=== PATIENT | female | born 1935 | race Two or more races ===

== ENCOUNTER 2025-03-12 09:46 | Emergency (ER) | payer OTHER ==
[~2025-03-12] VITALS: Ht 152.4 cm; Wt 56.7 kg
[2025-03-12] MEDS ORDERED: PROTONIX40 MG (09:57)
[2025-03-12] MEDS ORDERED: BUSPAR (09:57)
[2025-03-12] MEDS ORDERED: [UNRECOGNIZED DRUG - OTHER] (09:57)
[2025-03-12] MEDS ORDERED: CITALOPRAM HBR10 MG (09:57)
[2025-03-12] MEDS ORDERED: ATORVASTATIN CA20 MG (09:57)
[2025-03-12] MEDS ORDERED: ARICEPT10 MG (09:58)
[2025-03-12 10:31] LABS: BASO % 0.4 % (0.1-1.2); EOS # 0.03 (0.04-0.54); EOS % 0.4 % (0.7-7.0); HEMATOCRIT 36.1 % (34.1-44.9); HEMOGLOBIN 11.9 g/dL (11.2-15.7); LYMPH # 1.61 (1.18-3.74); LYMPH % 18.8 % (19.3-53.1); MEAN CORPUSCULAR HEMOGLOBIN 30.6 pg (25.6-32.2); MONO # 0.67 (0.24-0.82); MONO % 7.8 % (4.7-12.5); NEUT % 72.4 % (34.0-71.1); PLATELET COUNT 237 K/uL (163-369); RED BLOOD COUNT 3.89 M/uL (3.93-5.22); RED CELL DISTRIBUTION WIDTH 13.6 % (11.6-14.4)
[2025-03-12 11:07] LABS: ALBUMIN 3.2 gm/dL (3.4-5.0); BILIRUBIN TOTAL 0.48 mg/dL (0.3-1.2); CALCIUM 9.3 mg/dL (8.5-10.1); CREATININE SERUM 0.94 mg/dL (0.55-1.02); GFR 56.07; GLOBULINA 3.3 G/DL (2.4-3.5); POTASSIUM 4.14 mEq/L (3.5-5.1); TOTAL PROTEIN 6.5 gm/dL (6.4-8.2)
== END 2025-03-12 14:58 | disposition home or self-care (01) ==
LOC: ER 09:46
PROVIDERS: General Practice
DX: S01.121A Laceration with foreign body of right eyelid and periocular area, initial encounter (principal); W18.39XA Other fall on same level, initial encounter; Y93.89 Activity, other specified; Y92.89 Other specified places as the place of occurrence of the external cause; Z88.2 Allergy status to sulfonamides; I10 Essential (primary) hypertension; G30.8 Other Alzheimer's disease; F02.80 Dementia in other diseases classified elsewhere, unspecified severity, without behavioral disturbance, psychotic disturbance, mood disturbance, and anxiety

== ENCOUNTER 2025-03-21 09:19 | Emergency (ER) | payer OTHER ==
[~2025-03-21] VITALS: Ht 157.5 cm; Wt 59.0 kg
[~2025-03-21 09:19] MED LIST: ARICEPT10 MG; ATORVASTATIN CA20 MG; BUSPAR; CITALOPRAM HBR10 MG; PROTONIX40 MG; [UNRECOGNIZED DRUG - OTHER]
[2025-03-21] MEDS ORDERED: LORazepam 2 MG/ML VIAL IM ONE (16:45)
== END 2025-03-21 18:29 | disposition home or self-care (01) ==
LOC: ER 09:19
DX: S89.82XA Other specified injuries of left lower leg, initial encounter (principal); W18.39XA Other fall on same level, initial encounter; Z91.81 History of falling; Y93.89 Activity, other specified; Y92.89 Other specified places as the place of occurrence of the external cause; Z88.2 Allergy status to sulfonamides; F03.90 Unspecified dementia, unspecified severity, without behavioral disturbance, psychotic disturbance, mood disturbance, and anxiety; S09.8XXA Other specified injuries of head, initial encounter
CPT/HCPCS: 70450; 73560; 96372; 99284; J3490